=== PATIENT | female | born 1975 | race Caucasian/White ===

== ENCOUNTER → 2016-07-18 | Outpatient (CLI) | payer BC ==
--- NOTE | 2016-07-19 08:55 | US ---
EXAMINATION TYPE: US pelvic complete DATE OF EXAM: 07/18/2016 4:23 PM COMPARISON: NONE CLINICAL HISTORY: N92.0 Menorrhagia. Irregular heavy cycles, 6, para 4, miscarriage 1, aborti on 1 TECHNIQUE: Transabdominal (TA) Date of LMP: 1 month ago EXAM MEASUREMENTS: Uterus: 8.6 x 3.9 x 4.8 cm Endometrial Stripe: 0.6 cm Right Ovary: 3.2 x 2.4 x 2.8 cm Left Ovary: 3.1 x 1.6 x 1.5 cm 1. Uterus: anteverted, slightly heterogeneous 2. Endometrium: measuring thin at 0.6cm for secretory phase 3. Right Ovary: 2.2 x 1.4 x 2.4cm cystic area 4. Left Ovary: wnl 5. Bilateral Adnexa: wnl 6. Posterior cul-de-sac: wnl IMPRESSION: Indeterminate cystic right ovarian lesion could represent hemorrhagic cyst, cystadenoma, consider follow-up
== END | disposition home or self-care (01) ==
LOC: RADUSMAIN 15:49
PROVIDERS: ATTEND Obstetrics & Gynecology
DX: N83.8 Other noninflammatory disorders of ovary, fallopian tube and broad ligament (principal); N92.0 Excessive and frequent menstruation with regular cycle
CPT/HCPCS: 76856

== ENCOUNTER → 2017-05-22 | Outpatient (CLI) | payer BC ==
--- NOTE | 2017-05-23 08:58 | MM ---
Reason for exam: screening (asymptomatic). Last mammogram was performed 2 years and 4 months ago. History: Family history of breast cancer in grandmother at age 50 and breast cancer in mother at age 50. Benign US biopsy breast VAD RT of the right breast, January 12, 2015. Physical Findings: A clinical breast exam by your physician is recommended on an annual basis and results should be correlated with mammographic findings. MG Screening Mammo w CAD Bilateral CC and MLO view(s) were taken. Prior study comparison: January 12, 2015, right breast MG diagnostic mammo RT wo CAD. November 22, 2014, bilateral MG screening mammo w CAD. The breast tissue is heterogeneously dense. This may lower the sensitivity of mammography. There is no discrete abnormality. No significant changes when compared with prior studies. ASSESSMENT: Negative, BI-RAD 1 RECOMMENDATION: Routine screening mammogram of both breasts in 1 year.
== END | disposition home or self-care (01) ==
LOC: RADMAMWWP 14:26
PROVIDERS: ATTEND Obstetrics & Gynecology
DX: Z12.31 Encounter for screening mammogram for malignant neoplasm of breast (principal)
CPT/HCPCS: 77067

== ENCOUNTER → 2017-12-13 | Outpatient (CLI) | payer BC ==
--- NOTE | 2017-12-13 17:06 | US ---
EXAMINATION TYPE: US pelvic complete DATE OF EXAM: 12/13/2017 COMPARISON: 07/18/2016 CLINICAL HISTORY: N92.0 MENORRHAGIA. Normal menses 10/02/17. Patient started bleeding again on and has spotted since. Pelvic pain. Patient states that something is starting to protrude from vag inal TECHNIQUE: Transabdominal (TA). Date of LMP: 10/02/17 - normal EXAM MEASUREMENTS: Uterus: 8.2 x 4.1 x 4.7 cm Endometrial Stripe: 0.7 cm Right Ovary: 2.1 x 2.1 x 1.4 cm Left Ovary: 3.0 x 3.0 x 2.3 cm 1. Uterus: Anteverted heterogeneous 2. Endometrium: appears wnl 3. Right Ovary: wnl 4. Left Ovary: cystic area = 2.2 x 1.9 x 1.8cm 5. Bilateral Adnexa: wnl 6. Posterior cul-de-sac: wnl IMPRESSION: Simple 2 cm left ovarian cyst. Normal uterus and endometrium. No evidence of uterine prol apse. No adverse change compared to old exam.
== END | disposition home or self-care (01) ==
LOC: RADUSWWP 16:11
PROVIDERS: ATTEND Obstetrics & Gynecology
DX: N83.202 Unspecified ovarian cyst, left side (principal)
CPT/HCPCS: 76856